=== PATIENT | male | born 1965 | race Caucasian/White ===

== ENCOUNTER 2018-11-28 07:55 | Emergency (ER) | payer BC ==
--- NOTE | 2018-11-28 08:57 | CR ---
INDICATION: Upper chest pain. TECHNIQUE: Two-view chest. FINDINGS: Clear lungs. Normal heart size and pulmonary vascularity. Normal included skeletal thorax. IMPRESSION: Negative two-view chest. Dictated by George Lee MD @ Nov 28 2018 8:54AM Signed by Dr. George Lee @ Nov 28 2018 8:55AM
--- NOTE | 2018-11-28 08:58 | EDM.PDOC ---
ED HPI GENERAL MEDICAL PROBLEM - General Chief Complaint: ENT Problem Stated Complaint: SOMETHING IN LT EYE Time Seen by Provider: 11/28/18 07:56 Source of Information: Reports: Patient History Limitations: Reports: No Limitations - History of Present Illness INITIAL COMMENTS - FREE TEXT/NARRATIVE: History of present illness: []Patient thought he got an eyelash in his left eye yesterday and tried flushing it out. It was crusted shut and very red. It's that he has a fullness in his neck that started 4 days ago. He denies any fevers, chills, shortness of breath no difficulty swallowing but he feels fullness when he swallows Review of systems: As per history of present illness and below otherwise all systems reviewed and negative. Past medical history: As per history of present illness and as reviewed below otherwise noncontributory. Surgical history: As per history of present illness and as reviewed below otherwise noncontributory. Social history: No reported history of drug or alcohol abuse. Family history: As per history of present illness and as reviewed below otherwise noncontributory. Physical exam: General: Well developed, well nourished in NAD HEENT: Atraumatic, normocephalic, pupils reactive, left eye with erythema of the inner eyelids and conjunctiva , mucous membranes moist, throat clear, neck supple, nontender, trachea midline. Lungs: Clear to auscultation, breath sounds equal bilaterally, chest nontender. Heart: S1S2, regular, negative for clicks, rubs, or JVD. Abdomen: NABS, Soft, nondistended, nontender. Negative for masses or hepatosplenomegaly. Negative for costovertebral tenderness. Pelvis: Stable nontender. Genitourinary: Deferred. Rectal: Deferred. Extremities: Atraumatic, negative for cords or calf pain. Neurovascular unremarkable. Neuro: Awake, alert, oriented. Cranial nerves II through XII unremarkable. Cerebellum unremarkable. Motor and sensory unremarkable throughout. Exam nonfocal. Skin:warm and dry Diagnostics: Fluorescein stain left eye shows no corneal abrasion, chest x-ray, soft tissue neck film Therapeutics: none ED Course: Stable Impression: Left eye conjunctivitis Prescriptions: Erythromycin ointment Plan: Take meds as directed, follow up with your primary care physician, return to ER if symptoms worsen or change. Definitive disposition and diagnosis as appropriate pending reevaluation and review of above. L eye Pain Score (Numeric/FACES): 2 - Related Data Allergies Allergy/AdvReac Type Severity Reaction Status Date / Time No Known Allergies Allergy Verified 11/28/18 08:07 Home Meds: Home Meds Erythromycin Base [Erythromycin 0.5% Ophth Oint] 1 applic OP Q12H #1 tube [Rx] Past Medical History - Past Surgical History Other Musculoskeletal Surgeries/Procedures:: back surgery Social & Family History - Tobacco Use Smoking Status *Q: Never Smoker - Caffeine Use Caffeine Use: Reports: Soda - Recreational Drug Use Recreational Drug Use: No ED ROS ENT - Review of Systems Review Of Systems: See Below ED EXAM, ENT - Physical Exam Exam: See Below Course - Vital Signs Last Recorded V/S: Last Vital Signs Temp 96.8 F 11/28/18 08:04 Pulse 97 11/28/18 08:04 Resp 20 11/28/18 08:04 BP 128/90 11/28/18 08:04 Pulse Ox 97 11/28/18 08:04 Departure - Departure Time of Disposition: 09:10 Disposition: Home, Self-Care 01 Condition: Good Clinical Impression: Conjunctivitis, left eye Qualifiers: Conjunctivitis type: unspecified Qualified Code(s): H10.9 - Unspecified conjunctivitis - Discharge Information *PRESCRIPTION DRUG MONITORING PROGRAM REVIEWED*: No *COPY OF PRESCRIPTION DRUG MONITORING REPORT IN PATIENT CARLEEN: No Prescriptions: Erythromycin Base [Erythromycin 0.5% Ophth Oint] 1 applic OP Q12H #1 tube Instructions: Bacterial Conjunctivitis, [id number] Referrals: PCP,None [Primary Care Provider] - Forms: ED Department Discharge Additional Instructions: The following information is given to patients seen in the emergency department who are being discharged to home. This information is to outline your options for follow-up care. We provide all patients seen in our emergency department with a follow-up referral. The need for follow-up, as well as the timing and circumstances, are variable depending upon the specifics of your emergency department visit. If you don't have a primary care physician on staff, we will provide you with a referral. We always advise you to contact your personal physician following an emergency department visit to inform them of the circumstance of the visit and for follow-up with them and/or the need for any referrals to a consulting specialist. The emergency department will also refer you to a specialist when appropriate. This referral assures that you have the opportunity for follow-up care with a specialist. All of these measure are taken in an effort to provide you with optimal care, which includes your follow-up. Under all circumstances we always encourage you to contact your private physician who remains a resource for coordinating your care. When calling for follow-up care, please make the office aware that this follow-up is from your recent emergency room visit. If for any reason you are refused follow-up, please contact the [facility] Emergency Department at and asked to speak to the emergency department charge nurse. Take meds as directed, follow up with your primary care physician, return to ER if symptoms worsen or change. [facility] [place] [id number]
--- NOTE | 2018-11-28 09:00 | CR ---
INDICATION: Upper chest pain. Feels fullness while swallowing. TECHNIQUE: Two views of the soft tissues of the neck. FINDINGS: No cervical spine fracture or acute malalignment. No prevertebral soft tissue swelling. No radiodense foreign body. No evidence for epiglottitis. There is spurring along the anterior margin of C4 and C5 with slight narrowing of the C4 and C5 interspaces and slight flattening along the superior margin of the C5 vertebral body. Calcification within the anterior longitudinal ligament. Clear lung apices. Normal medial clavicular heads. IMPRESSION: No soft tissue abnormality of the neck. Mild degenerative change of the mid to low cervical spine. Dictated by George Lee MD @ Nov 28 2018 8:55AM Signed by Dr. George Lee @ Nov 28 2018 8:57AM
== END 2018-11-28 09:16 | disposition home or self-care (01) ==
LOC: MW.ED 07:55
DX: H10.9 Unspecified conjunctivitis (principal)
CPT/HCPCS: 70360; 70360-26; 71046; 71046-26; 99283-25